=== PATIENT | male | born 1945 | race Caucasian/White ===

== ENCOUNTER 2019-12-25 08:51 | Inpatient (IN) ==
[2019-12-25] MEDS ORDERED: CeFAZolin Syr 2,000MG/20 ML 2,000 MG/20 ML SYRINGE IVPB ONE (09:14)
[2019-12-25] MEDS ORDERED: *HR* Propofol 200 MG/20 ML VIAL IVP ONE (09:20)
[2019-12-25] MEDS ORDERED: *HR* FentaNYL (PF) 100 MCG/2 ML VIAL ONE ×2 (09:20→11:59)
[2019-12-25] MEDS ORDERED: *HR* Rocuronium Bromide 50 MG/5 ML VIAL ONE ×2 (09:21→11:54)
[2019-12-25] MEDS ORDERED: *HR* Succinylcholine 200 MG/10 ML VIAL IVP ONE (09:21)
[2019-12-25] MEDS ORDERED: Ondansetron 4 MG/2 ML VIAL ONE (09:21)
[2019-12-25] MEDS ORDERED: Lidocaine -MPF 2% 2 ML VIAL ONE (09:21)
[2019-12-25] MEDS ORDERED: Dexamethasone 4 MG/ML VIAL ONE (09:21)
[2019-12-25] MEDS ORDERED: Lidocaine HCL 4 ML Topical Solution (Laryng-O-Jet Kit Sterile Pak) TP ONE (09:26)
[2019-12-25] MEDS: Ringers Solution, Lactated 1,000 ML IVC SCH ×2 (09:47→15:44)
[2019-12-25] MEDS ORDERED: Acetaminophen IV 1,000 MG/100 ML INFUS..BTL IVPB ONE (09:49)
[2019-12-25] MEDS ORDERED: Ondansetron 4 MG/2 ML VIAL IVP PRN ×2 (10:02→16:41)
[2019-12-25] MEDS ORDERED: Lidocaine Jelly 6ml 1 APPL/6 ML JEL.PF.APP ONE (11:05)
[2019-12-25] MEDS ORDERED: *HR* Heparin 5,000 UNIT/ML VIAL ONE (11:11)
[2019-12-25] MEDS ORDERED: Heparin 1,000 UNITS/500 mL 0 ML ONE (11:11)
[2019-12-25] MEDS ORDERED: EPHEDrine 50 MG/ML VIAL ONE (11:49)
[2019-12-25] MEDS ORDERED: Albuterol 2.5 MG/3 ML NEBULIZER ONE (13:24)
[2019-12-25] MEDS ORDERED: Albuterol 2.5 MG/3 ML NEBULIZER IH ONE ×2 (13:27→14:05)
[2019-12-25] MEDS: *HR* FentaNYL (PF) 100 MCG/2 ML VIAL IVP PRN ×4 (13:39→15:14)
[2019-12-25] MEDS ORDERED: Diphenoxylate/Atropine 1 TAB TABLET PO PRN (16:41)
[2019-12-25] MEDS ORDERED: SUMAtriptan succinate 50 MG TABLET PO PRN (16:41)
[2019-12-25] MEDS ORDERED: Simethicone 80 MG TAB.CHEW PO PRN (16:41)
[2019-12-25] MEDS ORDERED: Fluticasone Propionate Nasal 50 MCG/SPRAY BOTTLE NS PRN (16:41)
[2019-12-25] MEDS ORDERED: Naloxone 0.4 MG/ML INJ IVP PRN (16:41)
[2019-12-25] MEDS: Ipratropium/Albuterol Neb 3 ML IH SCH ×2 (16:49→20:58)
[2019-12-25] MEDS: Gabapentin 300 MG CAPSULE PO SCH ×2 (17:24→20:23)
[2019-12-25] MEDS: *HR* Heparin 5,000 UNIT/ML VIAL SQ SCH ×2 (17:25→20:19)
[2019-12-25] MEDS: 0.9 % Sodium Chloride 1,000 ML IVC SCH (17:26)
[2019-12-25] MEDS: levETIRAcetam 250 MG TABLET PO SCH (20:18)
[2019-12-25] MEDS: Famotidine 20 MG TABLET PO SCH (20:18)
[2019-12-25] MEDS: Sennosides/Docusate Sodium TABLET PO SCH (20:19)
[2019-12-25] MEDS: CarBAMazepine XR (12 hr) 100 MG TAB PO SCH (20:19)
[2019-12-25] MEDS: *HR* HYDROcodone/Acet 5/325 mg TABLET PO PRN (20:33)
[2019-12-25] MEDS ORDERED: Fenofibrate 54 MG TABLET PO SCH (21:00)
[2019-12-26] MEDS: Ipratropium/Albuterol Neb 3 ML IH SCH ×4 (00:19→11:41)
[2019-12-26] MEDS: *HR* HYDROcodone/Acet 5/325 mg TABLET PO PRN ×2 (02:49→08:22)
[2019-12-26] MEDS: *HR* Heparin 5,000 UNIT/ML VIAL SQ SCH (05:48)
[2019-12-26] MEDS: 0.9 % Sodium Chloride 1,000 ML IVC SCH (05:49)
[2019-12-26 05:50] LABS: Hematocrit 29.3 % (37.5-50.1); Mean Corpuscular HGB Conc 34.1 g/dL (31.6-35.5); Mean Corpuscular Hemoglobin 31.3 pg (28.0-33.3); Mean Corpuscular Volume 91.6 fL (83.0-100.0); Mean Platelet Volume 8.9 fL (9.4-12.4); Platelet Count 356 K/mcL (140-400); Red Cell Distribution Width 13.1 % (11.5-14.5); White Blood Count 8.6 K/mcL (4.3-11.1)
[2019-12-26 05:59] LABS: BUN/Creatinine Ratio 12 (6-26); Blood Urea Nitrogen 11 mg/dL (8-23); Calcium 8.7 mg/dL (8.6-10.3); Carbon Dioxide 23 mEq/L (23-29); Chloride 95 mEq/L (98-107); Glucose 107 mg/dL (70-105); Osmolality,Calculated 262 (280-300); Potassium 4.3 mEq/L (3.5-5.1); Sodium 126 mEq/L (136-145); eGFR For African Americans > 60 (> 60); eGFR For Non-African Americans > 60 (> 60)
[2019-12-26] MEDS ORDERED: Furosemide 20 MG/2 ML VIAL IVP ONE (08:08)
[2019-12-26] MEDS: Sennosides/Docusate Sodium TABLET PO SCH (08:21)
[2019-12-26] MEDS: Gabapentin 300 MG CAPSULE PO SCH (08:21)
[2019-12-26] MEDS: levETIRAcetam 250 MG TABLET PO SCH (08:23)
[2019-12-26] MEDS: CarBAMazepine XR (12 hr) 100 MG TAB PO SCH (08:23)
[2019-12-26] MEDS: Famotidine 20 MG TABLET PO SCH (08:23)
[2019-12-26] MEDS ORDERED: amLODIPine 5 MG TABLET PO SCH ×2 (09:00)
[2019-12-26] MEDS ORDERED: Loratadine 10 MG TABLET PO SCH (09:00)
[2019-12-26] MEDS ORDERED: Lactobacillus 1 EACH CAP.SPRINK PO SCH (09:00)
[2019-12-26] MEDS ORDERED: FLUoxetine 20 MG CAPSULE PO SCH (09:00)
[2019-12-26] MEDS ORDERED: Aspirin Enteric Coated 81 MG Tablet PO SCH (09:00)
[2019-12-26] MEDS ORDERED: GuaiFENesin Liq 200 MG/10 ML UDC PO SCH (09:00)
[2019-12-26 11:11] VITALS: BP 120/63
== END 2019-12-26 14:13 | disposition home or self-care (01) | DRG 164 ==
LOC: SAMDAY 08:51 → 2NNU 16:42
PROVIDERS: ADMIT Thoracic Surgery (Cardiothoracic Vascular Surgery); ATTEND Thoracic Surgery (Cardiothoracic Vascular Surgery)